=== PATIENT | female | born 1955 | race Caucasian/White ===

== ENCOUNTER → 2020-06-13 | Outpatient (CLI) | payer OTHER, MEDICARE ==
[~2020-06-13] MED LIST: ACET500; ALBU90OI6 INH; ALPR.25 PO; ASCO500; ASCO500 PO; ATOR10; BACL10 PO; BISHYD2.5; BUSP5 PO; Bisoprolol Fumar5 MG PO; CALCAVITD; CHLO25B PO; CIDAFLEX TABLE1 EACH PO; Desyrel50 MG; FISH OIL 1,2001 EAC7 PO; FISH OIL-VIT D1 EACH; FISH1000; FLUO10 PO; FLUT.05NI; Fish Oil300 MG PO; GABA100 PO; GLUCOPHAGE1000 M1 PO; METF500; METF500 PO; MINO50; OMEP20ER PO; OMEP40CA12; Omeprazole20 M1 PO; Percocet 5-3251 EACH PO; Prozac20 MG PO; TRAM50 PO; TRAZ50 PO; ZOCOR20 MG PO
[2020-06-13 15:53] LABS: Source, Urine Clean Catch
[2020-06-13 17:50] LABS: Bilirubin, Urine Neg (Neg); Blood, Urine 1+ (Neg); Glucose Qualitative, Urine Neg (Neg); Ketones, Urine Neg (Neg); Leukocyte Esterase, Urine 1+ (Neg); Nitrite, Urine Neg (Neg); Protein, Urine Neg (Neg); Specific Gravity, Urine 1.015 (1.003-1.022); Urobilinogen, Urine NORM (Normal)
[2020-06-13 17:58] LABS: Color, Urine Pale Yellow (P-Yellow)
[2020-06-13 17:59] LABS: Appearance, Urine Clear (Clear)
[2020-06-13 18:00] LABS: Bacteria Mod /hpf; Red Blood Cells, Urine 0-2 /hpf (0-2); Squamous Epithelial Cells Rare /hpf (Few)
== END | disposition home or self-care (01) ==
LOC: LAB SHORT 11:21
PROVIDERS: Internal Medicine
DX: R30.0 Dysuria (principal)
CPT/HCPCS: 81001; 87077; 87086; 87186

== ENCOUNTER → 2022-03-29 | Outpatient (CLI) | payer MEDICARE, OTHER | LOC: LAB 10:30 → LAB SHORT 10:30 | DX: R05.9 Cough, unspecified (principal); J98.4 Other disorders of lung | CPT/HCPCS: 87070; 87205 ==

== ENCOUNTER 2022-06-29 10:21 | Day surgery (SDC) | payer MEDICARE, OTHER ==
[~2022-06-29] VITALS: Ht 165.1 cm; Wt 75.0 kg
[2022-06-29 11:49] VITALS: BP 109/63
--- NOTE | 2022-06-29 16:23 | NUR ---
06/29/22 1623 Kayy Lomeli SCOPE # [id number] USED
== END 2022-06-29 12:00 | disposition home or self-care (01) ==
LOC: ORSCSDS 10:21
PROVIDERS: Internal Medicine Gastroenterology
PROC: 0DB68ZX Excision of Stomach, Via Natural or Artificial Opening Endoscopic, Diagnostic (ICD-10-PCS; 2022-06-29)
PROC: 0D758ZZ Dilation of Esophagus, Via Natural or Artificial Opening Endoscopic (ICD-10-PCS; principal; 2022-06-29 11:30)
DX: R13.10 Dysphagia, unspecified (principal); R93.3 Abnormal findings on diagnostic imaging of other parts of digestive tract; I10 Essential (primary) hypertension; E78.5 Hyperlipidemia, unspecified; J45.909 Unspecified asthma, uncomplicated; F32.A Depression, unspecified
CPT/HCPCS: 82947; 88305; 88342; J2704; J7120

== ENCOUNTER 2023-01-26 07:36 | Day surgery (SDC) | payer MEDICARE, OTHER ==
[~2023-01-26] VITALS: Ht 165.1 cm; Wt 75.0 kg
[2023-01-26] MEDS ORDERED: SUDOGEST (07:54)
[2023-01-26] MEDS ORDERED: ASPI81CH (07:54)
[2023-01-26] MEDS ORDERED: MAGCHL64ER (07:54)
[2023-01-26] MEDS ORDERED: IBUP100S (07:55)
[2023-01-26 09:31] VITALS: BP 123/70
== END 2023-01-26 09:39 | disposition home or self-care (01) ==
LOC: ORSCSDS 07:36
PROVIDERS: Internal Medicine Gastroenterology
PROC: 0DJD8ZZ Inspection of Lower Intestinal Tract, Via Natural or Artificial Opening Endoscopic (ICD-10-PCS; principal; 2023-01-26 08:45)
DX: Z12.11 Encounter for screening for malignant neoplasm of colon (principal); Z86.010 Personal history of colon polyps; K57.30 Diverticulosis of large intestine without perforation or abscess without bleeding; I10 Essential (primary) hypertension; M79.7 Fibromyalgia; J45.909 Unspecified asthma, uncomplicated
CPT/HCPCS: 82947; J2704; J7120

== ENCOUNTER → 2024-01-31 | Outpatient (CLI) | payer MEDICARE, OTHER ==
[~2024-01-31] MED LIST changes: +ASPI81CH; +IBUP100S; +MAGCHL64ER; +SUDOGEST
== END ==
LOC: LAB 07:53 → LAB SHORT 07:53
DX: L60.2 Onychogryphosis (principal); B35.1 Tinea unguium
CPT/HCPCS: 88305; 88312